=== PATIENT | male | born 1940 | race Caucasian/White ===

== ENCOUNTER 2025-03-06 07:27 | Day surgery (SDC) | payer MEDICARE, OTHER, SELFPAY ==
[2025-03-06] VITALS (18 sets, daily range): BP systolic 136–160; BP diastolic 64–87; BMI 24.1
[2025-03-06 08:13] LABS: Glucose - Point of Care 138 mg/dl (70-99)
[2025-03-06 09:28] LABS: ACT-LR - POC 292 Seconds (116-155)
--- NOTE | 2025-03-06 09:49 | ITS.CL.ANGIO ---
Oenologist - Angioplasty
Angioplasty
Procedure Report:
LEFT HEART CATHETERIZATION
Date of Procedure: March 06, 2025
Procedures performed:
1: Coronary angiography
2: Left ventricular hemodynamic assessment
3: Percutaneous coronary intervention of the left anterior descending artery with placement of a 3.0 x 15 mm Xience drug-eluting stent postdilated at high pressure with a 3.25 mm diameter noncompliant balloon
Primary Care Provider: Dr. Keith Yeboah
Primary Certified Veterinary Technician: Myself
INDICATION: The patient is an 84-year-old male with a past medical history significant for coronary artery disease status post complex circumflex and diagonal stenting in 2016 who presents with crescendo angina.
ACCESS: The patient was prepped and draped in usual sterile fashion. A 6 Ethiopian sheath was placed in the right radial artery using the Seldinger over the wire technique.
HEMODYNAMIC FINDINGS (mmHg):
LV(s/d,EDP): 190/11, 27
Ao(s/d,m): 190/75, 118
ANGIOGRAPHIC FINDINGS:
Single-plane Left Ventriculography in MARK Projection: Not done. Normal gated ejection fraction by nuclear perfusion scan performed on 05/28/2024.
Coronary Angiography:
Dominance: Codominant
Left Main: Medium caliber and widely patent.
Left Anterior Descending: The left anterior descending artery is a medium caliber vessel that is fairly heavily calcified. There is a ostial smooth 30% stenosis followed by a long tapered 90% proximal stenosis. The mid LAD is widely patent. The
distal LAD wraps around the apex to feed the distal inferior wall. There are impressive collaterals from the OM system that fill the apical LAD indicating that the proximal LAD disease is causing a flow-limiting problem. The previously placed mid
diagonal stent is widely patent with no significant in-stent restenosis.
Left Circumflex: The left circumflex is a large codominant vessel that gives rise to a small caliber high OM1 that courses in a ramus distribution. A large left atrial branch is noted. The second obtuse marginal branch is a very large caliber
vessel that courses the lateral apex and is widely patent with normal flow. There are 2 long overlapping stents in the mid and distal circumflex that are also widely patent. The stents retirement two medium caliber left-sided posterior left ventricular
branches that have some degree of ostial disease but normal distal flow. The distal stent jails a small branch that has severe ostial disease but normal flow and a small caliber vessel. The distal circumflex terminates in small caliber vessels
that are widely patent.
Right Coronary: The right coronary artery is a relatively small but technically codominant vessel that has a mid total occlusion. This was present in 2016.
Percutaneous Coronary Intervention (PCI): In light of his clinical presentation and the above angiographic findings I elected to proceed with a PCI of the LAD. The patient was pretreated with aspirin. Unfractionated heparin was given. A loading
dose of clopidogrel was given on the table at the end of the procedure. A 6 Ethiopian XB 3.5 guiding catheter was used to engage the left main. A Hi-Torque floppy wire was easily advanced down the vessel and predilation was performed with a 2.25 x 12
mm balloon. Next a 3.0 x 15 mm Bolton drug-eluting stent was delivered and deployed at 12 davonte. The stent was postdilated with a 3.25 mm diameter noncompliant balloon at 18 davonte distally and 20 davonte proximally.
FINAL RESULT: 0% in-stent residual stenosis with an outstanding angiographic result and LISSET-3 flow in all vessels.
Fluoroscopy Time (min): 7.5
Radiation Dose (mGy): 360
DAP (Gy.cm2): 20
Closure device: None. A TR band was applied for hemostasis at the right wrist.
Complications: None.
ASSESSMENT:
1: Successful PCI of the LAD with placement of a drug-eluting stent as described above
2: Widely patent previously placed circumflex and diagonal stents placed in 2016.
3: Elevated left ventricular filling pressures in the setting of poorly controlled systemic hypertension.
CONCLUSIONS and RECOMMENDATIONS:
1: Routine post drug-eluting stent medical therapy and monitoring. The patient needs dual antiplatelet therapy uninterrupted for a year with aspirin and Plavix and aspirin 81 mg daily indefinitely without interruption.
2: Medical therapy for coronary artery disease with clinical follow-up as scheduled.
Keila Lovett M.D.
[2025-03-06 09:57] LABS: ACT-LR - POC > 397 Seconds (116-155)
--- NOTE | 2025-03-06 14:06 | W.PN.UPDATE ---
Update Note
Progress Note Update
Pt seen post LAD PCI w/1 JHOANA. Right radial cath site initially oozy but now stable and no ht/bleeding, palpable distal pulse. OOB ambulating. Post EKG SB 56, no acute changes. Pt and understand importance of uninterrupted DAPT w/asa, plavix.
Continue other meds as before. Cardiac rehab consulted. Followup with Dr. Lovett as scheduled. Home today if cath site/tele remain stable.
== END 2025-03-06 14:52 | disposition home or self-care (01) ==
LOC: CATH 07:27
PROVIDERS: ATTENDING PHYSICIAN Internal Medicine Interventional Cardiology; FAMILY PHYSICIAN Internal Medicine
DX: I25.110 Atherosclerotic heart disease of native coronary artery with unstable angina pectoris (principal); Z95.5 Presence of coronary angioplasty implant and graft; Z79.82 Long term (current) use of aspirin; Z79.02 Long term (current) use of antithrombotics/antiplatelets; Z79.899 Other long term (current) drug therapy; Z79.84 Long term (current) use of oral hypoglycemic drugs
CPT/HCPCS: 82962; 85347; 93005; 93458; C1725; C1769; C1874; C1887; C1894; C9600; Q9967